=== PATIENT | female | born 1940 | race Caucasian/White ===

== ENCOUNTER → 2023-11-10 08:11 | Outpatient (REF) | payer OTHER, SELFPAY ==
[2023-11-10 09:16] LABS: % Basophils 0.6 % (0-2); % Eosinophils 4.2 % (0-6); % Immature Granulocytes 0.6 % (0-0.5); % Lymphocytes 32.5 % (20.5-51.1); % Monocytes 9.7 % (1.7-9.3); % Neutrophils 52.4 % (42.2-75.2); Absolute Eosinophils 0.2 10^3/uL (0-0.7); Absolute Lymphocytes 1.6 10^3/uL (1.2-3.4); Absolute Monocytes 0.5 10^3/uL (0.1-0.6); Absolute Neutrophils 2.6 10^3/uL (1.4-6.5); Hematocrit 39.1 % (37.0-47.0); Hemoglobin 13.5 g/dL (12.0-16.0); Mean Corp Hgb Conc. 34.5 g/dL (33.0-37.0); Mean Corpuscular Hgb 32.1 pg (27.0-31.0); Mean Corpuscular Volume 92.9 fL (81.0-99.0); Mean Platelet Volume 9.3 fL (7.4-10.4); Nucleated Red Blood Cells % 0 %; Platelet Count 235 10^3/uL (130-400); Red Blood Cell Count 4.21 10^6/uL (4.20-5.40); Red Cell Dist. Width 11.9 % (11.5-14.5)
[2023-11-10 09:34] LABS: Glycohemoglobin (HgbA1c) 6.1 % (4.0-5.6)
[2023-11-10 11:15] LABS: ALT (SGPT) 28 U/L (0-35); AST (SGOT) 27 U/L (14-36); Albumin 4.4 g/dl (3.5-5.0); Alkaline Phosphatase 101 U/L (38-126); Blood Urea Nitrogen 23 mg/dl (7-17); Calcium 9.9 mg/dl (8.4-10.2); Carbon Dioxide 27 mmol/L (22-30); Chloride 104 mmol/L (98-107); Glucose 105 mg/dl (70-99); HDL Cholesterol 69 mg/dl; LDL Cholesterol, Calculated 143 mg/dl; Potassium 4.9 mmol/L (3.5-5.1); Sodium 139 mmol/L (135-145); Total Cholesterol 255 mg/dl (50-199); Triglyceride 215 mg/dl (10-149); Very Low Density Lipoprotein 43 mg/dl (0-30); eGFR > 60.00
[2023-11-10 14:41] LABS: TSH Reflex To Free T4 0.24 uIU/ml (0.47-4.68)
[2023-11-10 15:22] LABS: Free T4 2.09 ng/dl (0.78-2.19)
== END ==
LOC: REG 08:11
PROVIDERS: ATTENDING PHYSICIAN Internal Medicine
DX: R73.9 Hyperglycemia, unspecified (principal); E03.9 Hypothyroidism, unspecified; I10 Essential (primary) hypertension
CPT/HCPCS: 36415; 80053; 80061; 83036; 84439; 84443; 85025

== ENCOUNTER → 2024-01-18 08:41 | Outpatient (REF) | payer OTHER, SELFPAY ==
[2024-01-18 15:52] LABS: TSH Reflex To Free T4 1.75 uIU/ml (0.47-4.68)
== END ==
LOC: REG 08:41
PROVIDERS: ATTENDING PHYSICIAN Internal Medicine
DX: E03.9 Hypothyroidism, unspecified (principal)
CPT/HCPCS: 36415; 84443

== ENCOUNTER → 2024-02-03 10:00 | Outpatient (REF) | payer OTHER, SELFPAY | LOC: WDC 10:00 | PROVIDERS: ATTENDING PHYSICIAN Obstetrics & Gynecology Gynecology; FAMILY PHYSICIAN Internal Medicine | DX: N63.20 Unspecified lump in the left breast, unspecified quadrant (principal); N63.22 Unspecified lump in the left breast, upper inner quadrant | CPT/HCPCS: 76642; 77062; 77066 ==

== ENCOUNTER → 2024-02-07 08:52 | Outpatient (REF) | payer OTHER, SELFPAY ==
--- NOTE | 2024-02-07 14:59 | OID.BR.INTR ---
[facility] Breast Navigator - Initial
- -
Date of Contact: 02/07/24
Met with patient. Patient given written information on navigator services available at [facility]. Will follow up as needed per protocol.
== END ==
LOC: WDC 08:52
PROVIDERS: ATTENDING PHYSICIAN Obstetrics & Gynecology Gynecology; FAMILY PHYSICIAN Internal Medicine
DX: N63.22 Unspecified lump in the left breast, upper inner quadrant (principal)
CPT/HCPCS: 88305; 19083; 77065; 88341; 88342; 88360; A4648

== ENCOUNTER → 2024-03-01 11:53 | Outpatient (REF) | payer OTHER, SELFPAY | LOC: WDC 11:53 | PROVIDERS: ATTENDING PHYSICIAN Surgery | DX: C50.412 Malignant neoplasm of upper-outer quadrant of left female breast (principal) | CPT/HCPCS: 19285; 38792; 76942; A4648; A9541 ==

== ENCOUNTER → 2024-03-02 18:52 | Outpatient (REF) | payer OTHER, SELFPAY | LOC: RAD 18:52 | PROVIDERS: ATTENDING PHYSICIAN Nurse Practitioner Adult Health | DX: R05.1 Acute cough (principal) | CPT/HCPCS: 71046 ==

== ENCOUNTER → 2024-03-30 08:13 | Outpatient (REF) | payer OTHER, SELFPAY | LOC: WDC 08:13 | PROVIDERS: ATTENDING PHYSICIAN Surgery | DX: C50.412 Malignant neoplasm of upper-outer quadrant of left female breast (principal) | CPT/HCPCS: 38792; 76942; A4648; A9541 ==

== ENCOUNTER 2024-03-31 06:36 | Day surgery (SDC) | payer OTHER, SELFPAY ==
[2024-03-21 09:41] VITALS: BMI 29.6
[2024-03-21 11:08] LABS: Hematocrit 38.6 % (37.0-47.0); Hemoglobin 13.4 g/dL (12.0-16.0); Mean Corp Hgb Conc. 34.7 g/dL (33.0-37.0); Mean Corpuscular Hgb 32.3 pg (27.0-31.0); Mean Platelet Volume 9.9 fL (7.4-10.4); Platelet Count 214 10^3/uL (130-400); Red Blood Cell Count 4.15 10^6/uL (4.20-5.40); Red Cell Dist. Width 11.8 % (11.5-14.5); White Blood Cell Count 5.3 10^3/uL (4.8-10.8)
[2024-03-21 11:36] LABS: ALT (SGPT) 30 U/L (0-35); AST (SGOT) 30 U/L (14-36); Albumin 4.4 g/dl (3.5-5.0); Alkaline Phosphatase 84 U/L (38-126); Blood Urea Nitrogen 27 mg/dl (7-17); Calcium 9.3 mg/dl (8.4-10.2); Carbon Dioxide 28 mmol/L (22-30); Chloride 99 mmol/L (98-107); Estimated Creatinine Clearance 49 ml/min; Glucose 112 mg/dl (70-99); Potassium 4.4 mmol/L (3.5-5.1); Sodium 140 mmol/L (135-145); Total Protein 6.9 g/dl (6.3-8.2); eGFR > 60.00
[2024-03-21 11:39] LABS: Prealbumin (Transthyretin) 30.6 mg/dl (17.6-36.0)
[2024-03-31] VITALS (12 sets, daily range): BP systolic 14–170; BP diastolic 66–88; BMI 29.2
[2024-03-31] MEDS: VANCOCIN 200 IV (07:46)
[2024-03-31 08:15] LABS: Vitamin D, 25-OH*** 39.9 ng/mL (30-80)
--- NOTE | 2024-03-31 09:37 | W.IMMPOSTOP ---
Surgical Immed Post Op Note
-
Primary Surgeon: Ayleen
Assisting Surgeon: None
Pre-op Diagnosis: Left breast ca
Post-op Diagnosis: Same
Procedure Performed: Left localized lumpectomy, sentinel lymph node mapping and biopsy, oncoplastic mastoplasty
Anesthesia Type: TIVA
Specimen / Cultures: Left lumpectomy, sentinel node, margins
Estimated Blood Loss: 4cc
Complications: None
Operative Findings: Neg sentinel node frozen section
[place] Node Bx Breast Cancer
[place] Node Bx Breast Cancer
Tracer(s) to ID [place] Nodes in Non-Neoadjuvant setting: Radioactive Tracer
Tracer(s) to ID [place] Nodes in the Neoadjuvant Setting: N/A
All nodes at end of dye-filled Lymphatic Channel removed: N/A
All Significantly Radioactive Nodes were removed: Yes
All Palpably Suspicious Nodes were Removed: Yes
Bx Proven Pos Nodes Marked Prior to Chemo ID'd & Removed: N/A
== END 2024-03-31 10:50 | disposition home or self-care (01) ==
LOC: SDS 06:36
PROVIDERS: ATTENDING PHYSICIAN Surgery; FAMILY PHYSICIAN Internal Medicine
DX: C50.912 Malignant neoplasm of unspecified site of left female breast (principal); Z17.0 Estrogen receptor positive status [ER+]
CPT/HCPCS: 38525; 19301; 88305; 88307; 88332; 76098; 80053; 82306; 84134; 85027; 88331; 88333; 88342; 88360; 93005; A4648; L8000

== ENCOUNTER → 2024-05-22 16:11 | Outpatient (REF) | payer OTHER, SELFPAY ==
[2024-05-22 16:24] LABS: % Basophils 0.6 % (0-2); % Eosinophils 2.4 % (0-6); % Immature Granulocytes 0.6 % (0-0.5); % Lymphocytes 25.1 % (20.5-51.1); % Monocytes 9.5 % (1.7-9.3); % Neutrophils 61.8 % (42.2-75.2); Absolute Eosinophils 0.2 10^3/uL (0-0.7); Absolute Lymphocytes 1.7 10^3/uL (1.2-3.4); Absolute Monocytes 0.6 10^3/uL (0.1-0.6); Absolute Neutrophils 4.1 10^3/uL (1.4-6.5); Hematocrit 40.3 % (37.0-47.0); Hemoglobin 13.5 g/dL (12.0-16.0); Mean Corp Hgb Conc. 33.5 g/dL (33.0-37.0); Mean Corpuscular Hgb 32.1 pg (27.0-31.0); Mean Platelet Volume 9.6 fL (7.4-10.4); Nucleated Red Blood Cells % 0 %; Platelet Count 233 10^3/uL (130-400); White Blood Cell Count 6.7 10^3/uL (4.8-10.8)
[2024-05-22 16:37] LABS: ALT (SGPT) 30 U/L (0-35); AST (SGOT) 30 U/L (14-36); Albumin 4.8 g/dl (3.5-5.0); Alkaline Phosphatase 84 U/L (38-126); Blood Urea Nitrogen 27 mg/dl (7-17); Calcium 9.3 mg/dl (8.4-10.2); Carbon Dioxide 29 mmol/L (22-30); Chloride 99 mmol/L (98-107); Glucose 107 mg/dl (70-99); Potassium 4.1 mmol/L (3.5-5.1); Sodium 137 mmol/L (135-145); Total Bilirubin 1.1 mg/dl (0.2-1.3); Total Protein 7.2 g/dl (6.3-8.2); eGFR > 60.00
== END ==
LOC: CLAB 16:11
PROVIDERS: ATTENDING PHYSICIAN Internal Medicine Hematology & Oncology
DX: C50.412 Malignant neoplasm of upper-outer quadrant of left female breast (principal)
CPT/HCPCS: 80053; 85025

== ENCOUNTER → 2024-05-24 10:02 | Outpatient (REF) | payer OTHER, SELFPAY ==
[2024-05-24 10:20] VITALS: BP 162/76; BP_SYST 76; BMI 29.2
[2024-05-24] MEDS: VANCOCIN 200 IV (10:52)
[2024-05-24 12:13] VITALS: BP 169/69
== END ==
LOC: RADI 10:02
PROVIDERS: ATTENDING PHYSICIAN Internal Medicine Hematology & Oncology; FAMILY PHYSICIAN Internal Medicine
DX: C50.412 Malignant neoplasm of upper-outer quadrant of left female breast (principal)
CPT/HCPCS: 36561; 76937; 77001; 99152; 99153; C1788

== ENCOUNTER → 2024-06-12 12:13 | Outpatient (REF) | payer OTHER, SELFPAY ==
[2024-06-12 13:16] LABS: % Basophils 1.4 % (0-2); % Eosinophils 2.3 % (0-6); % Immature Granulocytes 1.8 % (0-0.5); % Lymphocytes 16.7 % (20.5-51.1); % Monocytes 9.4 % (1.7-9.3); % Neutrophils 68.4 % (42.2-75.2); Absolute Basophils 0.1 10^3/uL (0-0.2); Absolute Eosinophils 0.2 10^3/uL (0-0.7); Absolute Immature Granulocytes 0.2 10^3/uL (0-0.05); Absolute Lymphocytes 1.5 10^3/uL (1.2-3.4); Absolute Monocytes 0.8 10^3/uL (0.1-0.6); Hematocrit 37.9 % (37.0-47.0); Hemoglobin 12.3 g/dL (12.0-16.0); Mean Corp Hgb Conc. 32.5 g/dL (33.0-37.0); Mean Corpuscular Hgb 30.8 pg (27.0-31.0); Mean Corpuscular Volume 94.8 fL (81.0-99.0); Nucleated Red Blood Cells % 0 %; Platelet Count 476 10^3/uL (130-400); Red Cell Dist. Width 11.8 % (11.5-14.5); White Blood Cell Count 8.8 10^3/uL (4.8-10.8)
[2024-06-12 13:56] LABS: ALT (SGPT) 32 U/L (0-35); AST (SGOT) 29 U/L (14-36); Albumin 4.1 g/dl (3.5-5.0); Alkaline Phosphatase 115 U/L (38-126); Blood Urea Nitrogen 18 mg/dl (7-17); Carbon Dioxide 27 mmol/L (22-30); Chloride 101 mmol/L (98-107); Glucose 99 mg/dl (70-99); Sodium 136 mmol/L (135-145); Total Bilirubin 0.3 mg/dl (0.2-1.3); Total Protein 6.5 g/dl (6.3-8.2); eGFR > 60.00
== END ==
LOC: REG 12:13
PROVIDERS: ATTENDING PHYSICIAN Internal Medicine Hematology & Oncology; FAMILY PHYSICIAN Internal Medicine
DX: C50.412 Malignant neoplasm of upper-outer quadrant of left female breast (principal)
CPT/HCPCS: 36415; 80053; 85025

== ENCOUNTER → 2024-07-04 08:28 | Outpatient (REF) | payer OTHER, SELFPAY ==
[2024-07-04 10:08] LABS: % Basophils 1.1 % (0-2); % Eosinophils 0.3 % (0-6); % Immature Granulocytes 1.2 % (0-0.5); % Lymphocytes 22.1 % (20.5-51.1); % Monocytes 11.3 % (1.7-9.3); Absolute Basophils 0.1 10^3/uL (0-0.2); Absolute Immature Granulocytes 0.1 10^3/uL (0-0.05); Absolute Lymphocytes 2.7 10^3/uL (1.2-3.4); Absolute Monocytes 1.4 10^3/uL (0.1-0.6); Absolute Neutrophils 7.8 10^3/uL (1.4-6.5); Hematocrit 37.7 % (37.0-47.0); Hemoglobin 12.5 g/dL (12.0-16.0); Mean Corp Hgb Conc. 33.2 g/dL (33.0-37.0); Mean Corpuscular Hgb 31.7 pg (27.0-31.0); Mean Corpuscular Volume 95.7 fL (81.0-99.0); Mean Platelet Volume 9.5 fL (7.4-10.4); Nucleated Red Blood Cells % 0 %; Platelet Count 429 10^3/uL (130-400); Red Blood Cell Count 3.94 10^6/uL (4.20-5.40); Red Cell Dist. Width 13.3 % (11.5-14.5); White Blood Cell Count 12.1 10^3/uL (4.8-10.8)
[2024-07-04 10:48] LABS: ALT (SGPT) 27 U/L (0-35); AST (SGOT) 22 U/L (14-36); Albumin 4.5 g/dl (3.5-5.0); Alkaline Phosphatase 95 U/L (38-126); Blood Urea Nitrogen 31 mg/dl (7-17); Calcium 9.6 mg/dl (8.4-10.2); Carbon Dioxide 30 mmol/L (22-30); Chloride 99 mmol/L (98-107); Glucose 96 mg/dl (70-99); Potassium 5.1 mmol/L (3.5-5.1); Sodium 139 mmol/L (135-145); Total Bilirubin 0.7 mg/dl (0.2-1.3); eGFR > 60.00
== END ==
LOC: REG 08:28
PROVIDERS: ATTENDING PHYSICIAN Internal Medicine Hematology & Oncology; FAMILY PHYSICIAN Internal Medicine
DX: C50.412 Malignant neoplasm of upper-outer quadrant of left female breast (principal)
CPT/HCPCS: 36415; 80053; 85025

== ENCOUNTER → 2024-07-25 08:16 | Outpatient (REF) | payer OTHER, SELFPAY ==
[2024-07-25 09:46] LABS: % Basophils 1.2 % (0-2); % Lymphocytes 12.6 % (20.5-51.1); % Monocytes 10.9 % (1.7-9.3); % Neutrophils 72.3 % (42.2-75.2); Absolute Basophils 0.2 10^3/uL (0-0.2); Absolute Eosinophils 0.1 10^3/uL (0-0.7); Absolute Immature Granulocytes 0.3 10^3/uL (0-0.05); Absolute Lymphocytes 1.7 10^3/uL (1.2-3.4); Absolute Monocytes 1.5 10^3/uL (0.1-0.6); Absolute Neutrophils 9.7 10^3/uL (1.4-6.5); Hematocrit 34.7 % (37.0-47.0); Hemoglobin 11.5 g/dL (12.0-16.0); Mean Corp Hgb Conc. 33.1 g/dL (33.0-37.0); Mean Corpuscular Hgb 31.2 pg (27.0-31.0); Mean Platelet Volume 8.9 fL (7.4-10.4); Nucleated Red Blood Cells % 0 %; Platelet Count 442 10^3/uL (130-400); Red Blood Cell Count 3.69 10^6/uL (4.20-5.40); Red Cell Dist. Width 14.3 % (11.5-14.5); White Blood Cell Count 13.5 10^3/uL (4.8-10.8)
[2024-07-25 10:17] LABS: ALT (SGPT) 28 U/L (0-35); AST (SGOT) 22 U/L (14-36); Albumin 3.9 g/dl (3.5-5.0); Alkaline Phosphatase 117 U/L (38-126); Blood Urea Nitrogen 22 mg/dl (7-17); Calcium 9.5 mg/dl (8.4-10.2); Carbon Dioxide 28 mmol/L (22-30); Chloride 102 mmol/L (98-107); Glucose 100 mg/dl (70-99); Potassium 4.6 mmol/L (3.5-5.1); Sodium 138 mmol/L (135-145); Total Bilirubin 0.9 mg/dl (0.2-1.3); Total Protein 6.6 g/dl (6.3-8.2); eGFR > 60.00
== END ==
LOC: REG 08:16
PROVIDERS: ATTENDING PHYSICIAN Internal Medicine Hematology & Oncology; FAMILY PHYSICIAN Internal Medicine
DX: C50.412 Malignant neoplasm of upper-outer quadrant of left female breast (principal)
CPT/HCPCS: 36415; 80053; 85025

== ENCOUNTER → 2024-08-02 12:54 | Outpatient (REF) | payer OTHER, SELFPAY ==
[2024-08-02 13:10] VITALS: BP 133/54; BP_SYST 90
== END ==
LOC: RADI 12:54
PROVIDERS: ATTENDING PHYSICIAN Internal Medicine Hematology & Oncology; FAMILY PHYSICIAN Internal Medicine
DX: C50.412 Malignant neoplasm of upper-outer quadrant of left female breast (principal)
CPT/HCPCS: 36590; 77001

== ENCOUNTER → 2024-08-25 14:32 | Outpatient (REF) | payer OTHER, SELFPAY | LOC: HWRAD 14:32 | PROVIDERS: ATTENDING PHYSICIAN Internal Medicine Hematology & Oncology; FAMILY PHYSICIAN Internal Medicine; REFERRING PHYSICIAN Obstetrics & Gynecology Gynecology | DX: C50.412 Malignant neoplasm of upper-outer quadrant of left female breast (principal); Z78.0 Asymptomatic menopausal state | CPT/HCPCS: 77080 ==

== ENCOUNTER → 2024-12-25 07:31 | Outpatient (REF) | payer OTHER, SELFPAY ==
[2024-12-25 08:18] LABS: Hematocrit 37.9 % (37.0-47.0); Hemoglobin 12.7 g/dL (12.0-16.0); Mean Corp Hgb Conc. 33.5 g/dL (33.0-37.0); Mean Corpuscular Volume 92.9 fL (81.0-99.0); Nucleated Red Blood Cells % 0 %; Platelet Count 213 10^3/uL (130-400); Red Cell Dist. Width 13.3 % (11.5-14.5)
[2024-12-25 08:42] LABS: ALT (SGPT) 22 U/L (0-35); AST (SGOT) 25 U/L (14-36); Albumin 4.5 g/dl (3.5-5.0); Alkaline Phosphatase 75 U/L (38-126); Blood Urea Nitrogen 34 mg/dl (7-17); Calcium 9.7 mg/dl (8.4-10.2); Carbon Dioxide 26 mmol/L (22-30); Chloride 105 mmol/L (98-107); Glucose 98 mg/dl (70-99); HDL Cholesterol 65 mg/dl; LDL Cholesterol, Calculated 140 mg/dl; Potassium 5.2 mmol/L (3.5-5.1); Sodium 137 mmol/L (135-145); Total Protein 6.8 g/dl (6.3-8.2); Very Low Density Lipoprotein 38 mg/dl (0-30); eGFR > 60.00
[2024-12-25 08:53] LABS: Glycohemoglobin (HgbA1c) 6.0 % (4.0-5.6)
== END ==
LOC: REG 07:31
PROVIDERS: ATTENDING PHYSICIAN Internal Medicine; OTHER PHYSICIAN Internal Medicine Hematology & Oncology
DX: R73.9 Hyperglycemia, unspecified (principal); I10 Essential (primary) hypertension; E78.2 Mixed hyperlipidemia; C50.412 Malignant neoplasm of upper-outer quadrant of left female breast
CPT/HCPCS: 36415; 80053; 80061; 83036; 84439; 84443; 85025

== ENCOUNTER → 2025-02-01 11:12 | Outpatient (REF) | payer OTHER, SELFPAY | LOC: HWRCS 11:12 | PROVIDERS: ATTENDING PHYSICIAN Internal Medicine; FAMILY PHYSICIAN Nurse Practitioner Adult Health | DX: I10 Essential (primary) hypertension (principal); R94.31 Abnormal electrocardiogram [ECG] [EKG] | CPT/HCPCS: 93306 ==

== ENCOUNTER → 2025-02-27 10:24 | Outpatient (REF) | payer OTHER, SELFPAY | LOC: WDC 10:24 | PROVIDERS: ATTENDING PHYSICIAN Family Medicine Geriatric Medicine; FAMILY PHYSICIAN Internal Medicine | DX: C50.412 Malignant neoplasm of upper-outer quadrant of left female breast (principal); Z78.0 Asymptomatic menopausal state; Z12.31 Encounter for screening mammogram for malignant neoplasm of breast; E03.9 Hypothyroidism, unspecified | CPT/HCPCS: 36415; 77063; 77067; 84443 ==